=== PATIENT | male | born 1980 | race Caucasian/White ===

== ENCOUNTER 2020-04-29 02:43 | Emergency (ER) | payer BC ==
[2020-04-29 02:52] VITALS: RESP 16
[2020-04-29] MEDS ORDERED: lisinopriL 10 MG TAB PO STA (03:16)
--- NOTE | 2020-04-29 03:16 | ED ---
Recheck HPI - General Chief Complaint: Shortness of Breath Stated Complaint: SOB,High BP Time Seen by Provider: 04/29/20 02:48 Source: patient, RN notes reviewed, old records reviewed Mode of arrival: ambulatory Limitations: no limitations - History of Present Illness Initial Comments: This is a 31-year-old male DF for evaluation patient Dese for evaluation of elevated heart rate upper Estrace symptoms cough and congestion as well as recent diagnosis of hypertension. Recently a tooth pulled. Patient is not on high blood pressure medications currently. At this point patient has no other complaints and does have concern over elevated blood pressure is been taking his blood pressure today for a week MD Complaint: other (Elevated blood pressure) -: hour(s) Returns Today for: Called Because of Abnormal Lab/Test (Elevated blood pressure) Symptoms Since Prior Visit: no new symptoms Associated Symptoms: none Treatments Prior to Arrival: other (None) - Related Data Previous Rx's Medication Instructions Recorded lisinopriL [Zestril] 10 mg PO DAILY #30 tab 04/29/20 Allergies Allergy/AdvReac Type Severity Reaction Status Date / Time Penicillins Allergy Rash/Hives Verified 04/29/20 02:52 Review of Systems ROS Statement: Those systems with pertinent positive or pertinent negative responses have been documented in the HPI. ROS Other: All systems not noted in ROS Statement are negative. Past Medical History Past Medical History: No Reported History History of Any Multi-Drug Resistant Organisms: None Reported Past Surgical History: No Surgical Hx Reported Past Psychological History: Anxiety Smoking Status: Current every day smoker Past Alcohol Use History: None Reported Past Drug Use History: None Reported General Exam Limitations: no limitations General appearance: alert, in no apparent distress Head exam: Present: atraumatic, normocephalic, normal inspection Eye exam: Present: normal appearance, PERRL, EOMI. Absent: scleral icterus, conjunctival injection, periorbital swelling ENT exam: Present: normal exam, mucous membranes moist Neck exam: Present: normal inspection. Absent: tenderness, meningismus, lymphadenopathy Respiratory exam: Present: normal lung sounds bilaterally. Absent: respiratory distress, wheezes, rales, rhonchi, stridor Cardiovascular Exam: Present: regular rate, normal rhythm, normal heart sounds. Absent: systolic murmur, diastolic murmur, rubs, gallop, clicks GI/Abdominal exam: Present: soft, normal bowel sounds. Absent: distended, tenderness, guarding, rebound, rigid Extremities exam: Present: normal inspection, full ROM, normal capillary refill. Absent: tenderness, pedal edema, joint swelling, calf tenderness Back exam: Present: normal inspection Neurological exam: Present: alert, oriented X3, CN II-XII intact Psychiatric exam: Present: normal affect, normal mood Skin exam: Present: warm, dry, intact, normal color. Absent: rash Course Vital Signs 04/29/20 02:47 Temperature 98.2 F Pulse Rate 82 Respiratory 16 Rate Blood Pressure 166/105 O2 Sat by Pulse 99 Oximetry - Reevaluation(s) Reevaluation #1: 04/29/20 04:06 Medical record is reviewed Reevaluation #2: 04/29/20 04:07 Patient's blood pressures improved Reevaluation #3: 04/29/20 04:07 Informed results questions answered Medical Decision Making - Medical Decision Making 39 male DF for evaluation patient's chest x-ray negative, patient given blood pressure control patient can be discharged home - EKG Data -: EKG Interpreted by Me (EKG is sinus rhythm 66 FL 172 QRS 78 QTc 419) - Radiology Data Radiology results: report reviewed (Chest x-rays negative for acute disease), image reviewed Disposition Clinical Impression: Hypertension Disposition: HOME SELF-CARE Condition: Good Instructions (If sedation given, give patient instructions): Hypertension (ED) Prescriptions: lisinopriL [Zestril] 10 mg PO DAILY #30 tab Is patient prescribed a controlled substance at d/c from ED?: No Referrals: None,Stated [Primary Care Provider] - 1-2 days
--- NOTE | 2020-04-29 03:48 | XR ---
EXAM: XR Chest, 2 Views CLINICAL HISTORY: ITS.REASON XR Reason: cough TECHNIQUE: Frontal and lateral views of the chest. COMPARISON: No relevant prior studies available. FINDINGS: Lungs: Prominent interstitial lung markings. No consolidation. Pleural space: No significant pleural effusion or pneumothorax. Heart: Unremarkable. Mediastinum: Unremarkable. Bones/joints: No acute fracture. Upper abdomen: Air-fluid level in the stomach. IMPRESSION: Prominent interstitial lung markings. No consolidation.
[2020-04-29 04:09] VITALS: BP 136/85; PULSE 72; TEMP 98
== END 2020-04-29 04:25 | disposition home or self-care (01) ==
LOC: EC 02:43
DX: I10 Essential (primary) hypertension (principal); R05 Cough; R09.89 Other specified symptoms and signs involving the circulatory and respiratory systems; F17.200 Nicotine dependence, unspecified, uncomplicated; Z88.0 Allergy status to penicillin
CPT/HCPCS: 71046; 93005; 99285